=== PATIENT | male | born 1990 | race African-American/Black ===

== ENCOUNTER 2023-07-29 11:19 | Emergency (ER) | payer SELFPAY ==
[2023-07-29] MEDS ORDERED: Ibuprofen 200 MG TAB ONE (11:46)
== END 2023-07-29 12:56 | disposition home or self-care (01) ==
LOC: NAV ERS 11:19
DX: J10.1 Influenza due to other identified influenza virus with other respiratory manifestations (principal); I10 Essential (primary) hypertension; F17.210 Nicotine dependence, cigarettes, uncomplicated
CPT/HCPCS: 87804; 99283